=== PATIENT | male | born 1945 | race Caucasian/White ===

== ENCOUNTER 2022-01-12 16:35 | Observation (INO) | payer OTHER ==
[~2022-01-12] VITALS: Ht 172.7 cm; Wt 67.0 kg
[~2022-01-12 16:35] MED LIST: AMLO5 PO; ASPI81CH PO; AZIT250 PO; Aspir 8181 MG PO; B-12 COMPL1000 MCG/2 IM; CARV3.125; CARV3.125 PO; DIVA500EC PO; FINA5 PO; FLUO10 PO; GUAI600T33 PO; HYDR1TAB94 PO; LEVSOD75 PO; MECL12.5 PO; MUPIROCIN1 G1 TOP; Norco 10-325 T1 EACH PO; ONDA4ODT MM; PANT20 PO; ZYRTEC10 M2 PO
[2022-01-12 17:13] LABS: BASOPHILS ABSOLUTE AUTO 0.02 K/mm3 (0.00-0.23); BASOPHILS PERCENT AUTO 1 % (0-2); EOSINOPHILS ABSOLUTE AUTO 0.12 K/mm3 (0.00-0.68); EOSINOPHILS PERCENT AUTO 3 % (0-6); Hematocrit 33.4 % (37.0-53.0); Hemoglobin 11.4 g/dL (13.5-17.5); IMMATURE GRAN ABSOLUTE AUTO 0.06 K/mm3 (0.00-0.10); IMMATURE GRAN PERCENT AUTO 2 % (0-1); LYMPHOCYTES ABSOLUTE AUTO 1.12 K/mm3 (0.84-5.20); LYMPHOCYTES PERCENT AUTO 27 % (21-46); MONOCYTES ABSOLUTE AUTO 0.43 K/mm3 (0.16-1.47); MONOCYTES PERCENT AUTO 11 % (4-13); Mean Corpuscular HGB Conc 34.1 g/dL (31.5-36.5); Mean Corpuscular Volume 94 fL (80-100); Mean Platelet Volume 10.9 fL (9.1-12.4); NEUTROPHILS ABSOLUTE AUTO 2.35 K/mm3 (1.96-9.15); NEUTROPHILS PERCENT AUTO 57 % (41-73); Platelet Count 113 K/mm3 (150-400); RDW Coefficient Variation 13.8 % (11.7-14.2); RDW Standard Deviation 47.8 fL (35.1-46.3); Red Blood Cell Count 3.56 M/mm3 (4.30-5.90)
[2022-01-12 17:32] LABS: Albumin, Blood 3.1 g/dL (3.4-5.0); Albumin/Globulin Ratio 0.9 (0.8-1.8); Bilirubin, Total 0.7 mg/dL (0.1-1.0); Calcium, Blood 8.7 mg/dL (8.5-10.1); Creatinine, Blood 1.44 mg/dL (0.60-1.20); Globulin, Blood 3.4 g/dL (2.2-4.0); Potassium, Blood 4.2 mmol/L (3.5-5.5); Total Protein, Blood 6.5 g/dL (6.4-8.2)
[2022-01-12] MEDS ORDERED: CARV6.25 PO (18:03)
[2022-01-12] MEDS ORDERED: FLUO10 PO (18:05)
[2022-01-12] MEDS ORDERED: PANT40 PO (18:06)
[2022-01-12 19:27] LABS: Source, Urine Clean Catch
[2022-01-12 19:33] LABS: Appearance, Urine Clear (Clear); Blood, Urine 1+ (Neg); Color, Urine Amber (P-Yellow); Glucose Qualitative, Urine Neg (Neg); Ketones, Urine Neg (Neg); Leukocyte Esterase, Urine Neg (Neg); Nitrite, Urine Neg (Neg); Protein, Urine Neg (Neg); Urobilinogen, Urine 2+ (Normal)
[2022-01-12 19:46] LABS: Bilirubin, Urine 1+ (Neg)
[2022-01-12 20:00] LABS: White Blood Cells, Urine 0-2 /hpf (0-5)
[2022-01-12 20:01] LABS: Bacteria Few /hpf; Squamous Epithelial Cells Not Seen /hpf (Few)
[2022-01-13 05:27] LABS: BASOPHILS ABSOLUTE AUTO 0.02 K/mm3 (0.00-0.23); BASOPHILS PERCENT AUTO 1 % (0-2); EOSINOPHILS ABSOLUTE AUTO 0.14 K/mm3 (0.00-0.68); EOSINOPHILS PERCENT AUTO 4 % (0-6); Hematocrit 28.7 % (37.0-53.0); IMMATURE GRAN ABSOLUTE AUTO 0.07 K/mm3 (0.00-0.10); IMMATURE GRAN PERCENT AUTO 2 % (0-1); LYMPHOCYTES ABSOLUTE AUTO 1.45 K/mm3 (0.84-5.20); LYMPHOCYTES PERCENT AUTO 39 % (21-46); MONOCYTES ABSOLUTE AUTO 0.38 K/mm3 (0.16-1.47); MONOCYTES PERCENT AUTO 10 % (4-13); Mean Corpuscular HGB 32.1 pg (26.0-34.0); Mean Corpuscular HGB Conc 34.8 g/dL (31.5-36.5); Mean Corpuscular Volume 92 fL (80-100); Mean Platelet Volume 11.8 fL (9.1-12.4); NEUTROPHILS ABSOLUTE AUTO 1.65 K/mm3 (1.96-9.15); NEUTROPHILS PERCENT AUTO 45 % (41-73); Platelet Count 97 K/mm3 (150-400); RDW Coefficient Variation 13.8 % (11.7-14.2); RDW Standard Deviation 47.4 fL (35.1-46.3); Red Blood Cell Count 3.12 M/mm3 (4.30-5.90); White Blood Cell Count 3.71 K/mm3 (4.00-11.30)
--- NOTE | 2022-01-13 05:41 | NUR ---
END OF SHIFT SUMMARY PT NEW ADMIT OVERNIGHT FOR SYNCOPE HE GETS DIZZY JUST SITTING UP IN BED. PT BRADYCARDIC DIPPED DOWN TO 38. PT IS PLEASANT BUT FORGETFUL AND LOSES TRAIN OF THOUGHT INTERMITTENTLY WHILE TALKING. DOES A LOT OF WORD SEARCHING DURING CONVERSATION. PT HAS PIV IN RIGHT AC WITH NS RUNNING AT 75ML/HR. HEAD CT WAS CLEAR. WILL CONTINUE TO MONITOR AND GIVE REPORT TO ONCOMING RN.
[2022-01-13 05:59] LABS: Free Thyroxine 1.33 ng/dL (0.70-1.60); Thyroid Stimulating Hormone 2.51 uIU/mL (0.360-4.800)
[2022-01-13 06:00] LABS: Albumin, Blood 2.5 g/dL (3.4-5.0); Albumin/Globulin Ratio 0.8 (0.8-1.8); Bilirubin, Total 0.6 mg/dL (0.1-1.0); Bun/Creatinine Ratio 18.5 (12.0-20.0); Calcium, Blood 7.4 mg/dL (8.5-10.1); Creatinine, Blood 1.19 mg/dL (0.60-1.20); Total Protein, Blood 5.5 g/dL (6.4-8.2)
--- NOTE | 2022-01-13 08:55 | NUR ---
IMAGING: ECHO BEING DONE AT BEDSIDE AT THIS TIME.
[2022-01-13 12:56] LABS: CPK Creatine Kinase 50 U/L (39-308)
--- NOTE | 2022-01-13 15:40 | NUR ---
BRADYCARDIA: PT REMAINS BRADYCARDIC, DIPS INTO THE HIGH 30'S WITH REST. MD AWARE. ENCOURAGING PT TO DRINK FLUIDS PER DOCTOR. WILL CONT TO MONITOR.
--- NOTE | 2022-01-13 17:55 | NUR ---
PT HAS CONTINUED TO HAVE SYMPTOMATIC BRADYCARDIA T/O THIS SHIFT. HR INTO THE 30'S WITH REST. PT IS DIZZY WHEN SITTING UP, STANDING AND AMBULATING. BP STABLE. PT SAT IN CHAIR AND AMBULATED X2 WITH 1 ASSIST. IV FLUIDS COMPLETED, ENCOURAGING PO INTAKE. POOR APPETITE. VOIDING WELL, NO BM THIS SHIFT. SATS STABLE ON RA. ECHO COMPLETED THIS AM. AFTERNOON CARDIAC LABS RETURNED NEGATIVE. HOSPITALIST CONSULTED WITH CARDIOLOGY, NO NEW ORDERS. PT USES CALL LIGHT APPROPRIATELY NEEDED.
--- NOTE | 2022-01-14 04:52 | NUR ---
PT SLEEPING WELL TONIGHT. INTERMITTENTLY WAKING UP FOR SHORT PERIODS OF TIME. PT IN SINUS MIKE. HRS MAINLY IN THE 40S, POPPING UP TO THE 60S WITH ACITVITY. INTERMITTENTLY DIPPING INTO THE 30S NON SUSTAINING. OTHER VITALS STABLE. BPS WITH HYPERTENSION. DENIES CP AND DIZZINES TONIGHT. PAIN MANAGED WITH DECREASED STIMULI, PT NOT WANTING HIS PAIN MEDICATONS SO FAR TONIGHT. PT FORGETFUL BUT ORIENTED. FOLLOWING COMMANDS AND NOT IMPULSIVE.
--- NOTE | 2022-01-14 11:00 | NUR ---
UPDATE: PALLIATIVE CARE CONSULTED. 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 SHE IS UNABLE TO BE AT HOME UNSUPERVISED, OR PERFORM ADLs W/OUT ASSISTANCE. HE ALSO EXPLAINS HE IS "SLOWING DOWN" & IS HAVING DIFF "CARING FOR MYSELF IT IS, LET ALONE HER". DISCUSSED CONCERNS FOR SAFETY IN THE HOME, & SERVICES AVAILABLE FOR CAREGIVING, PT APPEARS RECEPTIVE BUT DOES NOT HAVE ANYTHING IN PLACE. PALLIATVE CONSULT PLACED, [facility] @ BEDSIDE.
--- NOTE | 2022-01-14 12:37 | NUR ---
DISCUSSED PT CASE W/ RESIDENT HOSP DR HARRIS. PT CONTINUES TO BE SINUS MIKE IN THE low 50s, high 40s. GROSSLY ASYMPTOMATIC, PT DENIES CP, ABLE TO MOVE FROM BED TO TOILET W/ OUT SOB OR DIZZINESS. PLAN FOR DC HOME TODAY. PT UPDATED & IS AGREEABLE, STS HE IS ANXIOUS TO GO HOME & TAKE CARE OF HIS SPOUSE.
--- NOTE | 2022-01-14 14:00 | NUR ---
UPDATE: FAMILY @ BEDSIDE, UPDATED CONTACT INFO. PT's SON, MONROE, @ BEDSIDE, STS HE ORGANIZES PT's MEDS EACH WEEK, HELPS W/ ADLs HE IS ABLE BUT AGREES PT REQUIRES ADDITIONAL HELP. CONTACT INFO
--- NOTE | 2022-01-14 15:26 | NUR ---
PT & FAMILY GIVEN THOROUGH WRITTEN & VERBAL DC INSTRUCTIONS, EDUCATED ON THE IMPORTANCE OF BEING VIGILANT W/ SYMPTOMS, FOLLOWING UP W/ CARDIOLOGY, & RETURNING TO ED IF WORSE IN ANY WAY. UNDERSTANDING VERB. OOTD VIA WC W/OUT INCIDENT.
--- NOTE | 2022-01-14 17:46 | NUR ---
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 He states she has multiple health issues and states he is overwhelmed with how little energy he has recently, feeling like he can't take care of himself, his , or their home in an effective way. He states he has lost approximately 40 lbs in the past year from exhaustion. He reports being a , at "[employer]". He states he could benefit greatly from some lite housekeeping, meal prep, ect. Plan to follow up tomorrow, even though pt is discharging today to at least check on [facility] programs available.
== END 2022-01-14 15:29 | disposition home or self-care (01) ==
LOC: ER 16:35 → PCU 22:08
PROVIDERS: Physician Assistant; ADMIT Internal Medicine
DX: R55 Syncope and collapse (principal); R00.1 Bradycardia, unspecified; I95.9 Hypotension, unspecified; R32 Unspecified urinary incontinence; I25.10 Atherosclerotic heart disease of native coronary artery without angina pectoris; F03.90 Unspecified dementia, unspecified severity, without behavioral disturbance, psychotic disturbance, mood disturbance, and anxiety; E78.5 Hyperlipidemia, unspecified; I73.9 Peripheral vascular disease, unspecified; E55.9 Vitamin D deficiency, unspecified; I12.9 Hypertensive chronic kidney disease with stage 1 through stage 4 chronic kidney disease, or unspecified chronic kidney disease; N18.2 Chronic kidney disease, stage 2 (mild); J44.9 Chronic obstructive pulmonary disease, unspecified; F17.210 Nicotine dependence, cigarettes, uncomplicated; K21.9 Gastro-esophageal reflux disease without esophagitis; E03.9 Hypothyroidism, unspecified; F32.A Depression, unspecified; E86.0 Dehydration; M19.90 Unspecified osteoarthritis, unspecified site; Z79.82 Long term (current) use of aspirin; Z88.1 Allergy status to other antibiotic agents; Z88.6 Allergy status to analgesic agent; Z88.8 Allergy status to other drugs, medicaments and biological substances; Z91.018 Allergy to other foods; Z86.73 Personal history of transient ischemic attack (TIA), and cerebral infarction without residual deficits
CPT/HCPCS: 36415; 70450; 71046; 80053; 81001; 82550; 83735; 83880; 84439; 84443; 84484; 85025; 93005; 93010; 93306; 94762; 96360; 96361; 96372; 99285-25; A9270; G0378; J1650; J7030; J7120